=== PATIENT | male | born 1950 | race Caucasian/White ===

== ENCOUNTER 2016-12-10 14:31 | Outpatient (CLI) | payer MEDICARE, OTHER ==
[2016-12-10 20:11] LABS: BILIRUBIN,URINE NEGATIVE (NEGATIVE); PH,URINE 5.5 PH (5.0-7.5)
[2016-12-10 20:19] LABS: WBC,URINE 0-3 /HPF (0-3)
[2016-12-10 20:24] LABS: ALBUMIN/GLOBULIN RATIO 1.4 (1.0-2.2); BILIRUBIN,TOTAL 0.6 mg/dL (0.2-1.0); BUN - BLOOD UREA NITROGEN 20 mg/dL (6-20); CALCIUM 8.8 mg/dL (8.5-10.3); CARBON DIOXIDE - CO2 24 mmol/L (21-32); CHLORIDE 105 mmol/L (101-111); CHOL/HDL RATIO 5.3 (<5.0); CHOLESTEROL 174 mg/dL; CREATININE 0.9 mg/dL (0.6-1.2); GFR - MDRD 84 (>89); GLUCOSE 105 mg/dL (70-100); HDL CHOLESTEROL 33 mg/dL; POTASSIUM 4.1 mmol/L (3.5-5.0); SODIUM 136 mmol/L (135-145); TOTAL PROTEIN 7.1 g/dL (6.7-8.2); TRIGLYCERIDES 405 mg/dL
[2016-12-10 20:47] LABS: LDL CHOLESTEROL,DIRECT 91 mg/dL
== END 2016-12-10 14:32 | disposition home or self-care (01) ==
LOC: LAB.F 14:31
PROVIDERS: ATTEND Family Medicine
DX: Z00.00 Encounter for general adult medical examination without abnormal findings (principal); E78.5 Hyperlipidemia, unspecified; Z12.5 Encounter for screening for malignant neoplasm of prostate; R35.8 Other polyuria; G25.0 Essential tremor; E88.81 Metabolic syndrome and other insulin resistance
CPT/HCPCS: 36415; 80053; 80061; 81001; 83721; G0103; 84153

== ENCOUNTER 2018-01-02 08:43 | Outpatient (CLI) | payer MEDICARE, OTHER ==
[2018-01-02 19:24] LABS: ALBUMIN 3.8 g/dL (3.2-5.5); ALBUMIN/GLOBULIN RATIO 1.2 (1.0-2.2); ALKALINE PHOSPHATASE 59 IU/L (42-121); ALT ALANINE AMINOTRANSFERASE 23 IU/L (10-60); AST ASPARTATE AMINOTRANSFERASE 19 IU/L (10-42); BILIRUBIN,TOTAL 0.5 mg/dL (0.2-1.0); BUN - BLOOD UREA NITROGEN 19 mg/dL (6-20); CALCIUM 8.8 mg/dL (8.5-10.3); CARBON DIOXIDE - CO2 26 mmol/L (21-32); CHLORIDE 107 mmol/L (101-111); CHOL/HDL RATIO 4.8 (<5.0); CHOLESTEROL 172 mg/dL; GFR - MDRD 75 (>89); GLUCOSE 109 mg/dL (70-100); HDL CHOLESTEROL 36 mg/dL; LDL CHOLESTEROL,CALCULATED 104 mg/dL; LDL/HDL RATIO 2.9 (<3.6); SODIUM 139 mmol/L (135-145); VLDL CHOLESTEROL 32 mg/dL
== END 2018-01-02 08:44 | disposition home or self-care (01) ==
LOC: LAB.F 08:43
PROVIDERS: ATTEND Family Medicine
DX: Z00.00 Encounter for general adult medical examination without abnormal findings (principal); E78.5 Hyperlipidemia, unspecified; E88.81 Metabolic syndrome and other insulin resistance; Z12.5 Encounter for screening for malignant neoplasm of prostate
CPT/HCPCS: 36415; 80053; 80061; G0103; 83721; 84153

== ENCOUNTER 2018-06-15 12:08 | Outpatient (CLI) | payer MEDICARE, OTHER ==
[~2018-06-15 12:08] MED LIST: IOTHALAMATE MEGLUMINE 50 ML VIAL ONE
[2018-06-15] MEDS ORDERED: BUFFERED LIDOCAINE 10 ML SYRINGE ONE ×2 (12:23→12:49)
--- NOTE | 2018-06-15 15:45 | XRAY Report ---
Reason: UNSPEC INJ OF RT LOW LEG Procedure Date: 06/15/2018 Accession Number: [id number] / [id number] Procedure: FL - Arthrogram Needle Placement CPT Code: FULL RESULT: EXAM: Arthrogram Needle Placement DATE: 06/15/2018 1:42 PM CLINICAL HISTORY: Fell on right knee with persistent pain. Patient has intracranial stimulator and cannot have an MRI. COMPARISON: None. TECHNIQUE: The risks, benefits, and alternatives of the procedure were discussed with the patient. All questions were answered. Written and verbal consent were obtained. The right knee joint was marked under fluoroscopy and prepped and draped in a sterile manner. Local anesthesia was performed with 1% lidocaine. A 22-gauge needle was then inserted into the knee joint. 21 cc of a solution containing 14 cc of Conray 60% and 7 cc of lidocaine 1% were then injected into the right knee joint. The needle was removed without immediate complication. Other: None. Fluoroscopic exposure time: 1 minute 2 seconds Number of fluoroscopic images: 2. FINDINGS: Bones and joints: No fracture or subluxation. Injection: Fluoroscopic images demonstrate needle placement and contrast in the knee joint. IMPRESSION: Successful fluoroscopically guided arthrographic injection of the right knee prior to CT. [facility]
[2018-06-15] MEDS ORDERED: IOTHALAMATE MEGLUMINE 50 ML VIAL IVP ONE (16:11)
[2018-06-15] MEDS: BUFFERED LIDOCAINE 10 ML SYRINGE IU ONE ×5 (16:13→18:42)
--- NOTE | 2018-06-15 22:24 | CT Report ---
Reason: ARTHROGRAM - UNSPEC INJ OF RT LOW LEG, INITIAL ENC Procedure Date: 06/15/2018 Accession Number: [id number] / [id number] Procedure: CT - Lower Extremity Right W/ CPT Code: FULL RESULT: EXAM: RIGHT KNEE CT ARTHROGRAM WITH CONTRAST. EXAM DATE: 06/15/2018 01:46 PM. CLINICAL HISTORY: Fall onto right patella in April 2018, possible injury to joint. COMPARISON: None available. TECHNIQUE: Thin-section axial images were acquired of the knee after an arthrographic injection dictated under a separate exam. Post-processing: Coronal and sagittal reformats. Other: None. In accordance with CT protocol optimization, one or more of the following dose reduction techniques were utilized for this exam: automated exposure control, adjustment of mA and/or KV based on patient size, or use of iterative reconstructive technique. FINDINGS: Bones: No fracture or bone lesion. Articular Cartilage: Shallow partial-thickness cartilage loss posterior aspect medial compartment and posterior aspect lateral tibial plateau. Menisci: Complex tear body and posterior horn with peripheral vertical component through the periphery and radial components through the free edge and flipped fragment extending over the superior articular surface posterior horn and root towards the intercondylar notch. Subtle horizontal tear contacts the inferior articular surface anterior horn lateral meniscus. Ligaments: No complete or external partial tears of the anterior cruciate, posterior cruciate, medial collateral, and lateral collateral ligamentous structures. Tendons: Suggestion of thickening and calcifications in the distal quadriceps tendon. Patellar tendon unremarkable. Musculature: No fatty atrophy. Other: No Bakers cyst. No loose bodies. No complete tears of the medial and lateral retinacula. No soft tissue swelling. IMPRESSION: 1. Complex tear body and posterior horn medial meniscus with flipped fragment extending toward the intercondylar notch. 2. Subtle horizontal tear anterior horn lateral meniscus. 3. Shallow partial thickness cartilage loss medial and lateral compartments. 4. Mild tendinopathy and ill-defined calcifications in the quadriceps tendon. [facility] MUSCULOSKELETAL RADIOLOGY SECTION
== END 2018-06-15 12:09 | disposition home or self-care (01) ==
LOC: DI 12:08
PROVIDERS: ATTEND Orthopaedic Surgery
DX: S89.91XA Unspecified injury of right lower leg, initial encounter (principal); S80.01XA Contusion of right knee, initial encounter; S83.241A Other tear of medial meniscus, current injury, right knee, initial encounter; S83.281A Other tear of lateral meniscus, current injury, right knee, initial encounter; M67.863 Other specified disorders of tendon, right knee
CPT/HCPCS: 73701; 77002; Q9961

== ENCOUNTER 2019-04-20 09:59 | Outpatient (CLI) | payer MEDICARE, OTHER ==
[2019-04-20 18:45] LABS: CHOLESTEROL 189 mg/dL; GLUCOSE,FASTING 118 mg/dL (70-100); HDL CHOLESTEROL 38 mg/dL; LDL CHOLESTEROL,CALCULATED 106 mg/dL; LDL/HDL RATIO 2.8 (<3.6); VLDL CHOLESTEROL 45 mg/dL
== END 2019-04-20 10:00 | disposition home or self-care (01) ==
LOC: LAB.S 09:59
PROVIDERS: ATTEND Internal Medicine
DX: Z13.220 Encounter for screening for lipoid disorders (principal); Z13.1 Encounter for screening for diabetes mellitus; Z12.5 Encounter for screening for malignant neoplasm of prostate; Z79.899 Other long term (current) drug therapy; N40.0 Benign prostatic hyperplasia without lower urinary tract symptoms
CPT/HCPCS: 36415; 80061; 82947; G0103; 83721; 84153

== ENCOUNTER 2019-06-05 07:00 | Outpatient (CLI) | payer MEDICARE, OTHER | END 2019-06-05 23:59 | disposition home or self-care (01) | LOC: LAB.R 07:00 | PROVIDERS: ATTEND Internal Medicine | DX: Z01.818 Encounter for other preprocedural examination (principal) | CPT/HCPCS: 87081 ==

== ENCOUNTER 2020-02-11 13:14 | Day surgery (SDC) | payer MEDICARE, OTHER ==
[2020-02-11] MEDS ORDERED: MIDAZOLAM 2 MG/2 ML VIAL IVP ONE (13:15)
[2020-02-11] MEDS ORDERED: fentaNYL 250 MCG/5 ML VIAL IVP ONE (13:15)
[2020-02-11] MEDS ORDERED: LACTATED RINGERS 1,000 ML IV ONE ×2 (13:54→16:31)
[2020-02-11 17:05] VITALS: BP 108/64
== END 2020-02-11 13:15 | disposition home or self-care (01) ==
LOC: SDS 13:14
PROVIDERS: ATTEND Internal Medicine Gastroenterology
PROC: 0DBN8ZZ Excision of Sigmoid Colon, Via Natural or Artificial Opening Endoscopic (ICD-10-PCS; 2020-02-11)
PROC: 0DBM8ZZ Excision of Descending Colon, Via Natural or Artificial Opening Endoscopic (ICD-10-PCS; 2020-02-11)
PROC: 0DBK8ZZ Excision of Ascending Colon, Via Natural or Artificial Opening Endoscopic (ICD-10-PCS; principal; 2020-02-11 14:15)
DX: Z12.11 Encounter for screening for malignant neoplasm of colon (principal); D12.2 Benign neoplasm of ascending colon; D12.4 Benign neoplasm of descending colon; K63.5 Polyp of colon; K57.30 Diverticulosis of large intestine without perforation or abscess without bleeding; G47.33 Obstructive sleep apnea (adult) (pediatric)
CPT/HCPCS: 45380; 45385; J3010; J7120

== ENCOUNTER 2020-08-14 08:41 | Outpatient (CLI) | payer MEDICARE, OTHER ==
[2020-08-14 15:54] LABS: BASOPHILS # (AUTO) 0.1 10^3/uL (0.0-0.1); BASOPHILS % (AUTO) 0.8 %; EOSINOPHILS # (AUTO) 0.4 10^3/uL (0.0-0.7); EOSINOPHILS % (AUTO) 6.1 %; HCT - HEMATOCRIT 47.6 % (42.0-52.0); HGB - HEMOGLOBIN 15.7 g/dL (14.0-18.0); LYMPHOCYTES # (AUTO) 1.7 10^3/uL (1.5-3.5); LYMPHOCYTES % (AUTO) 29.4 %; MEAN CORPUSCULAR HEMOGLOBIN 33.9 pg (27.0-31.0); MEAN CORPUSCULAR VOLUME 102.8 fL (80.0-94.0); MEAN PLATELET VOLUME 11.5 fL (7.4-11.4); MONOCYTES # (AUTO) 0.4 10^3/uL (0.0-1.0); MONOCYTES % (AUTO) 7.4 %; NEUTROPHILS # (AUTO) 3.3 10^3/uL (1.5-6.6); PLT - PLATELET COUNT 183 10^3/uL (130-450); RED BLOOD COUNT 4.63 10^6/uL (4.70-6.10); RED CELL DISTRIBUTION WIDTH 13.5 % (12.0-15.0); WHITE BLOOD COUNT 5.9 x10^3/uL (4.8-10.8)
[2020-08-14 16:27] LABS: ALBUMIN/GLOBULIN RATIO 1.3 (1.0-2.2); CALCIUM 8.9 mg/dL (8.5-10.3); CREATININE 1.1 mg/dL (0.6-1.2); POTASSIUM 3.8 mmol/L (3.5-5.0)
[2020-08-14 19:48] LABS: ESTIMATED AVERAGE GLUCOSE 114 mg/dL (70-100); HEMOGLOBIN A1c% 5.6 % (4.27-6.07)
== END 2020-08-14 08:42 | disposition home or self-care (01) ==
LOC: LAB.S 08:41
PROVIDERS: ATTEND Internal Medicine
DX: R73.01 Impaired fasting glucose (principal); Z79.899 Other long term (current) drug therapy; Z12.5 Encounter for screening for malignant neoplasm of prostate
CPT/HCPCS: 36415; 80053; 83036; 85025; G0103; 84153

== ENCOUNTER 2020-09-01 13:42 | Outpatient (CLI) | payer MEDICARE, OTHER ==
--- NOTE | 2020-09-01 14:36 | SLEEP CARE CONSULTATION ---
Information from patient questionnaire entered by Paulina Pratt. I have reviewed and concur with the information entered by Paulina Pratt. This document represents the service I personally performed and the decisions made by me, Dev Mclaughlin MD, [facility]. History of Present Illness Service Date and Time: 09/01/2020 1342 Reason for Visit: New patient Chief Complaint: reports: Unrefreshed sleep, Snoring, Excessive daytime sleepiness, Observed pauses in breathing, Fatigue, Frequent awakenings at night Date of Onset: 1991 Usual bedtime: ? Time it takes to fall asleep: Minutes/hours Snores at night: Yes Observed to quit breathing while asleep: Yes Sleeps alone due to snoring: No Number of times waking at night: 2-6 Reasons for waking at night: reports: Bathroom, Other (Unknown reason) Toss, Turn, or Twitch while sleeping: No Recalls having dreams: Yes Usually gets out of bed at: Various Feels refreshed in the morning: Yes Morning headache: No Sleepy or fatigued during the day: Yes Ever fallen asleep while driving: No Takes day naps: Yes Dreams during day naps: Yes Prior sleep studies: Yes Year and Where: 2011 [facility] Additional HPI information: I had the pleasure of seeing Mr. Templeton again today regarding obstructive sleep apnea. As you know, he is a 61 year old gentleman who was diagnosed to have severe obstructive sleep apnea with an RDI of 40.5 in 1999. He had the study done at [facility] in [place]. He now wears a Respironics DreamWear nasal cushion mask. His supplies come from [employer]. He reports significant improvement on the CPAP. He has been using it every night and all night since the beginning. His Respironics REM Star CPAP is now 10 years old. It has the credit card type memory card which can no longer be downloaded. According to my last note from 9 years ago, his CPAP was set at 10 cmH2O. According his , he does not snore at all through the CPAP. He gained lost 20 lbs over the past 9 years. His score on [place] Sleepiness Scale is 6 out of 24. - Parasomnia Symptoms Ever been unable to move upon waking from sleep: No Ever felt weak in the knees when startled or emotional: No Bothered by creepy, crawly, restless sensations in legs: No Problems with memory or concentration: No Subjective Initial [place] Sleepiness Scale score: 6 (in 2020) Past Medical History Past Medical History: reports: Depression Social History The patient's occupation is a retiree. Patient is and lives in [place]. Have you smoked in the past 12 months: Yes Cigarettes per day (20/pack): 40 Years of smokin Quit date: 1973 Smoking Pack Years: 12.0 Alcohol use: No Caffeine use: Yes Caffeine amount and frequency: 1 a day Family History Family history of sleep disordered breathing: No Allergies and Home Medications Drug allergies reviewed: Yes Home medication list reviewed: Yes Review of Systems Review of systems same as previous: Yes Psychiatric: reports: depression Physical Exam Height: 5 ft 9 in Weight: 220 lb Body Mass Index: 32.5 BMI Classification: Obese Impression and Plan IMPRESSION: 1. Obstructive Sleep Apnea-Hypopnea Syndrome, severe, as previously diagnosed. The patient has been doing very well on the positive airway pressure therapy. Because the CPAP is now older than the useful life of 5 years, I will order the patient a new one and make it an autoCPAP set between 6 and 11 cmH2O. Plan: 1. Prescription made for an autoCPAP, heated humidifier, and related supplies. 2. Try to lose weight. 3. Return for follow up after one month of using the new machine. Follow up recommended for: Weight management Time Spent with Patient (minutes): 15
== END 2020-09-01 13:43 | disposition home or self-care (01) ==
LOC: SC 13:42
PROVIDERS: ATTEND Internal Medicine Pulmonary Disease
DX: G47.33 Obstructive sleep apnea (adult) (pediatric) (principal); Z87.891 Personal history of nicotine dependence; E66.9 Obesity, unspecified; Z68.32 Body mass index [BMI] 32.0-32.9, adult
CPT/HCPCS: 99202; G0463; 99212

== ENCOUNTER 2021-02-17 08:54 | Outpatient (CLI) | payer MEDICARE, OTHER ==
[2021-02-17 14:59] LABS: ALBUMIN 3.8 g/dL (3.2-5.5); ALBUMIN/GLOBULIN RATIO 1.2 (1.0-2.2); BILIRUBIN,TOTAL 0.8 mg/dL (0.2-1.0); POTASSIUM 4.3 mmol/L (3.5-5.0); TOTAL PROTEIN 7.1 g/dL (6.7-8.2)
[2021-02-17 15:21] LABS: BASOPHILS % (AUTO) 0.6 %; EOSINOPHILS # (AUTO) 0.4 10^3/uL (0.0-0.7); EOSINOPHILS % (AUTO) 5.8 %; HCT - HEMATOCRIT 48.4 % (42.0-52.0); HGB - HEMOGLOBIN 15.9 g/dL (14.0-18.0); LYMPHOCYTES % (AUTO) 31.8 %; MEAN CORPUSCULAR HEMOGLOBIN 33.8 pg (27.0-31.0); MEAN CORPUSCULAR HGB CONC 32.9 g/dL (32.0-36.0); MEAN CORPUSCULAR VOLUME 102.8 fL (80.0-94.0); MEAN PLATELET VOLUME 10.3 fL (7.4-11.4); MONOCYTES # (AUTO) 0.5 10^3/uL (0.0-1.0); NEUTROPHILS # (AUTO) 3.3 10^3/uL (1.5-6.6); NEUTROPHILS % (AUTO) 53.3 %; PLT - PLATELET COUNT 192 10^3/uL (130-450); RED BLOOD COUNT 4.71 10^6/uL (4.70-6.10); RED CELL DISTRIBUTION WIDTH 13.5 % (12.0-15.0); WHITE BLOOD COUNT 6.3 x10^3/uL (4.8-10.8)
== END 2021-02-17 08:55 | disposition home or self-care (01) ==
LOC: LAB.S 08:54
PROVIDERS: ATTEND Internal Medicine
DX: Z79.899 Other long term (current) drug therapy (principal)
CPT/HCPCS: 36415; 80053; 85025

== ENCOUNTER 2021-08-23 12:16 | Outpatient (CLI) | payer MEDICARE, OTHER ==
[2021-08-23 18:19] LABS: BASOPHILS # (AUTO) 0.1 10^3/uL (0.0-0.1); BASOPHILS % (AUTO) 1.2 %; EOSINOPHILS # (AUTO) 0.3 10^3/uL (0.0-0.7); EOSINOPHILS % (AUTO) 4.5 %; HCT - HEMATOCRIT 47.3 % (42.0-52.0); HGB - HEMOGLOBIN 15.8 g/dL (14.0-18.0); LYMPHOCYTES # (AUTO) 1.9 10^3/uL (1.5-3.5); LYMPHOCYTES % (AUTO) 32.3 %; MEAN CORPUSCULAR HEMOGLOBIN 34.4 pg (27.0-31.0); MEAN CORPUSCULAR HGB CONC 33.4 g/dL (32.0-36.0); MEAN CORPUSCULAR VOLUME 103.1 fL (80.0-94.0); MEAN PLATELET VOLUME 10.7 fL (7.4-11.4); MONOCYTES # (AUTO) 0.5 10^3/uL (0.0-1.0); MONOCYTES % (AUTO) 7.9 %; NEUTROPHILS # (AUTO) 3.1 10^3/uL (1.5-6.6); NEUTROPHILS % (AUTO) 53.9 %; PLT - PLATELET COUNT 205 10^3/uL (130-450); RED BLOOD COUNT 4.59 10^6/uL (4.70-6.10); RED CELL DISTRIBUTION WIDTH 13.5 % (12.0-15.0); WHITE BLOOD COUNT 5.8 x10^3/uL (4.8-10.8)
[2021-08-23 18:35] LABS: ALBUMIN 3.7 g/dL (3.2-5.5); ALBUMIN/GLOBULIN RATIO 1.2 (1.0-2.2); ALKALINE PHOSPHATASE 61 IU/L (42-121); ALT ALANINE AMINOTRANSFERASE 20 IU/L (10-60); AST ASPARTATE AMINOTRANSFERASE 17 IU/L (10-42); BILIRUBIN,TOTAL 0.7 mg/dL (0.2-1.0); BUN - BLOOD UREA NITROGEN 19 mg/dL (6-20); CALCIUM 8.5 mg/dL (8.5-10.3); CARBON DIOXIDE - CO2 28 mmol/L (21-32); CHLORIDE 105 mmol/L (101-111); CHOL/HDL RATIO 4.9 (<5.0); CHOLESTEROL 194 mg/dL; GFR - MDRD 74 (>89); GLUCOSE 101 mg/dL (70-100); HDL CHOLESTEROL 40 mg/dL; LDL CHOLESTEROL,CALCULATED 111 mg/dL; LDL/HDL RATIO 2.8 (<3.6); POTASSIUM 4.2 mmol/L (3.5-5.0); SODIUM 139 mmol/L (135-145); TOTAL PROTEIN 6.8 g/dL (6.7-8.2); TRIGLYCERIDES 215 mg/dL; VLDL CHOLESTEROL 43 mg/dL
== END 2021-08-23 12:17 | disposition home or self-care (01) ==
LOC: LAB.S 12:16
PROVIDERS: ATTEND Internal Medicine
DX: Z79.899 Other long term (current) drug therapy (principal); Z13.220 Encounter for screening for lipoid disorders; Z12.5 Encounter for screening for malignant neoplasm of prostate
CPT/HCPCS: 36415; 80053; 80061; 85025; G0103; 83721; 84153

== ENCOUNTER 2022-06-20 13:18 | Emergency (ER) | payer MEDICARE, OTHER ==
--- NOTE | 2022-06-20 13:57 | XRAY Report ---
PROCEDURE: Chest 2 View X-Ray INDICATIONS: pain R upper back TECHNIQUE: 2 views of the chest were acquired. COMPARISON: None FINDINGS: Surgical changes and devices: Neurostimulator power pack projects over the left chest. The lead is di rected cranially. Lungs and pleura: Moderately decreased lung volumes. Slight blunting of the lateral costophrenic sulc i. There are probably bibasilar atelectatic changes. The upper lung zones are normally aerated. No pn eumothorax. Mediastinum: Mediastinal contours are normal. Heart size is enlarged. No central venous congestion. . Bones and chest wall: No suspicious bony abnormalities. Degenerative changes in both acromial clavic ular joints. Upper abdominal soft tissues suggest a few small calculi in the right upper quadrant, po tentially cholelithiasis. IMPRESSION: 1. Low lung volumes and probable bibasilar atelectatic change. 2. Cardiomegaly without central vascular congestion. 3. Suspected cholelithiasis. Reviewed by: Julieta Mares MD on 06/20/2022 12:55 PM AKST Approved by: Julieta Mares MD on 06/20/2022 12:55 PM AKST Station ID: [id number]
[2022-06-20 14:32] LABS: BASOPHILS # (AUTO) 0.1 10^3/uL (0.0-0.1); BASOPHILS % (AUTO) 0.9 %; EOSINOPHILS # (AUTO) 0.2 10^3/uL (0.0-0.7); EOSINOPHILS % (AUTO) 2.5 %; HCT - HEMATOCRIT 47.8 % (42.0-52.0); HGB - HEMOGLOBIN 15.9 g/dL (14.0-18.0); LYMPHOCYTES # (AUTO) 1.9 10^3/uL (1.5-3.5); LYMPHOCYTES % (AUTO) 29.5 %; MEAN CORPUSCULAR HGB CONC 33.3 g/dL (32.0-36.0); MEAN CORPUSCULAR VOLUME 99.2 fL (80.0-94.0); MEAN PLATELET VOLUME 10.5 fL (7.4-11.4); MONOCYTES # (AUTO) 0.5 10^3/uL (0.0-1.0); MONOCYTES % (AUTO) 7.6 %; NEUTROPHILS # (AUTO) 3.9 10^3/uL (1.5-6.6); NEUTROPHILS % (AUTO) 59.3 %; PLT - PLATELET COUNT 186 10^3/uL (130-450); RED BLOOD COUNT 4.82 10^6/uL (4.70-6.10); RED CELL DISTRIBUTION WIDTH 12.5 % (12.0-15.0); WHITE BLOOD COUNT 6.5 x10^3/uL (4.8-10.8)
[2022-06-20 14:43] LABS: ALBUMIN/GLOBULIN RATIO 1.2 (1.0-2.2); BILIRUBIN,TOTAL 0.9 mg/dL (0.2-1.0); CALCIUM 8.8 mg/dL (8.5-10.3); CREATININE 1.1 mg/dL (0.6-1.2); POTASSIUM 3.8 mmol/L (3.5-5.0); TOTAL PROTEIN 7.3 g/dL (6.7-8.2)
--- NOTE | 2022-06-20 14:57 | ED Physician Documentation ---
History of Present Illness - Stated complaint Stated Complaint: BACK PX,SOA - Chief complaint Chief Complaint: Back Pain - History obtained from History obtained from: Patient, Family - History of Present Illness Pain level max: 7 Pain level now: 5 - Additonal information Additional information: Patient is a 72-year-old male who presents to the emergency department with right-sided back pain, he states that this is near the level of the scapula. Worse with movement, better with rest. Has been ongoing for the past 3 months. Gradually worsening. He states he feels mildly short of breath as well. No fevers. No chills. Denies any trauma. No cough. No congestion. Patient states that the pain increased abruptly last night and today. Review of Systems Constitutional: denies: Fever, Chills Throat: denies: Sore throat Cardiac: denies: Palpitations Respiratory: denies: Wheezing GI: denies: Diarrhea PD PAST MEDICAL HISTORY - Past Medical History Cardiovascular: High cholesterol Respiratory: None Endocrine/Autoimmune: None GI: None : None HEENT: None Psych: Depression Musculoskeletal: None Derm: Rosacea - Present Medications Home Medications: Ambulatory Orders Medication Instructions Recorded Confirmed PARoxetine [Paxil] 02/08/20 Primidone 1 02/08/20 - Allergies Allergies/Adverse Reactions: Allergies Allergy/AdvReac Type Severity Reaction Status Date / Time No Known Drug Allergies Allergy Verified 06/20/22 13:27 PD ED PE NORMAL - Vitals Vital signs reviewed: Yes - General General: Alert and oriented X 3, No acute distress - HEENT HEENT: PERRL, Moist mucous membranes - Neck Neck: Supple, no meningeal sign - Cardiac Cardiac: RRR, Strong equal pulses - Respiratory Respiratory: No respiratory distress, Clear bilaterally - Abdomen Abdomen: Soft, Non distended, Other (Mild tenderness palpation right upper quadrant. No peritoneal signs) - Back Back: No CVA TTP, No spinal TTP - Derm Derm: Warm and dry, No rash - Extremities Extremities: No edema, No calf tenderness / cord - Neuro Neuro: Alert and oriented X 3 - Psych Psych: Normal mood, Normal affect Results - Vitals Vitals: Vital Signs - 24 hr 06/20/22 06/20/22 06/20/22 13:22 16:52 18:17 Temperature 37.1 C 37.0 C Heart Rate 82 65 72 Respiratory 16 18 19 Rate Blood Pressure 148/63 H 135/70 H 148/87 H O2 Saturation 96 95 99 Oxygen O2 Source Room air - Labs Labs: Laboratory Tests 06/20/22 06/20/22 14:20 14:20 WBC 6.5 RBC 4.82 Hgb 15.9 Hct 47.8 MCV 99.2 H MCH 33.0 H MCHC 33.3 RDW 12.5 Plt Count 186 MPV 10.5 Neut # (Auto) 3.9 Lymph # (Auto) 1.9 [place] # (Auto) 0.5 Eos # (Auto) 0.2 Baso # (Auto) 0.1 Absolute Nucleated RBC 0.00 Nucleated RBC % 0.0 Sodium 137 Potassium 3.8 Chloride 105 Carbon Dioxide 24 Anion Gap 8.0 BUN 16 Creatinine 1.1 Estimated GFR (MDRD) 66 L Glucose 154 H Calcium 8.8 Total Bilirubin 0.9 AST 19 ALT 23 Alkaline Phosphatase 58 Total Protein 7.3 Albumin 4.0 Globulin 3.3 Albumin/Globulin Ratio 1.2 Lipase 35 - Rads (name of study) Chest x-ray Radiology: Final report received, See rad report CT angio chest Radiology: Final report received, See rad report Right upper quadrant ultrasound Radiology: Final report received, See rad report PD Medical Decision Making - ED course Complexity details: reviewed results, re-evaluated patient, considered differential, d/w patient, d/w family, d/w fundraising consultant Reviewed Lab Results: CBC and ER abdominal panel did not show any significant abnormalities. ED course: 72-year-old male with about 3 months of ongoing right sided back pain/scapular pain. Chest x-ray shows possible gallstones, possible referred pain? CT pulmonary angiogram was performed for possible PE. Does have debris and a lower bronchus with some inflammation, will need an outpatient bronchoscope. These findings were discussed with the patient and his . Right upper quadrant ultrasound shows gallstones with borderline gallbladder wall thickening. On repeat evaluation, the patient does have increasing tenderness in the right upper quadrant and now has a positive Chadwick sign. Discussed the case with Dr. Rodríguez, general surgery on-call. She would like us to try IV fluids and Toradol. This was given. Patient remains tender to palpation on the right upper quadrant with a positive Chadwick sign. Discussed the case with Dr. Rodríguez again, she will come and evaluate the patient in person. Departure - Departure Clinical Impression: Biliary colic, Bronchial obstruction Condition: Stable
[2022-06-20] MEDS ORDERED: iohexoL-300 100 ML VIAL ONE (15:19)
[2022-06-20] MEDS ORDERED: iohexoL-300 100 ML VIAL IVP ONE (15:44)
--- NOTE | 2022-06-20 16:26 | CT Report ---
PROCEDURE: ANGIO CHEST W/WO INDICATIONS: R pleuritic back pain CONTRAST: 80ml omni 300 TECHNIQUE: After the administration of intravenous contrast, 2 mm axial images were acquired from the pulmonary apices to the posterior costophrenic angles during the arterial phase. In addition, 1 mm lung kernel and 5 mm soft tissue kernel reconstructions were performed. 3-dimensional coronal oblique maximum int ensity projection (MIP) reformats, 8 mm axial MIP, and 5 mm coronal and sagittal MPR reformats were t hen performed through the thorax. For radiation dose reduction, the following was used: automated exp osure control, adjustment of mA and/or kV according to patient size. COMPARISON: None FINDINGS: Image quality: Excellent. Pulmonary arteries: Pulmonary arteries are normal in size, and demonstrate no intraluminal filling d efects to suggest central pulmonary embolism. Lungs and pleura: There is abrupt termination of the right lower lobe posterior basal segment airway. Distally, airway is filled with material and slightly expansile as it courses adjacent to the pulmon camilo vasculature. There is mild postobstructive linear atelectasis in the costophrenic sulcus. Central and peripheral airways are otherwise within normal limits. There is respiratory motion. No other jacinta eolar consolidations. No pleural effusion or pneumothorax. Mediastinum: Heart size is normal, without pericardial effusion. There is borderline 9 mm short axi s right hilar node. No other mediastinal or hilar adenopathy. Thoracic aorta is normal in caliber an d enhancement. Esophagus is normal in caliber, without hiatal hernia. Bones and chest wall: No suspicious bony lesions. Ribs and thoracic spine appear intact throughout. No axillary or supraclavicular adenopathy. Left chest subcutaneous power pack. The thyroid gland is diminutive. Abdomen: Cholelithiasis. No pericholecystic inflammation. Visible portions of the upper abdomen are otherwise normal. IMPRESSION: 1. No pulmonary embolus. 2. Right lower lobe posterior basal segment airway occlusion with minor postobstructive linear atelec tatic change. 3. Borderline right hilar lymph node. 4. Cholelithiasis. 5. Bronchoscopy for diagnosis and treatment could be considered. Reviewed by: Julieta Mares MD on 06/20/2022 3:25 PM AK Approved by: Julieta Mares MD on 06/20/2022 3:25 PM AK Station ID: [id number]
[2022-06-20] MEDS ORDERED: oxyCODONE 5 MG TABLET PO STA (17:04)
--- NOTE | 2022-06-20 17:10 | Ultrasound Report ---
PROCEDURE: Abdomen Limited INDICATIONS: RUQ pain TECHNIQUE: Real-time focused scanning was performed of the abdomen, with image documentation. COMPARISON: CT angiogram of the chest from the same day. Abdominal ultrasound dated 01/24/2015. FINDINGS: Liver is normal in size. Diffusely increased liver parenchymal echotexture is seen. No discrete hepat ic lesion. Normal hepatopedal flow is seen in main portal vein. Multiple stones are seen in any portion of gallbladder near the neck of gallbladder with borderline g allbladder wall thickening measures up to 3.4 mm. No pericholecystic fluid or sonographic Chadwick's si gn. There is no intrahepatic biliary ductal dilatation. Common bile that measures up to 3.7 mm in diamete r and is within normal limits. Pancreas is not well seen due to overlying bowel gas. Right kidney measures 9.8 cm in length and 1.6 cm in renal cortical thickness. Echogenic foci are not ed in right renal parenchyma which could represent tiny stones. No hydronephrosis or gross solid-appe aring renal lesion is seen. IMPRESSION: 1. Marked hepatic steatosis, no discrete hepatic lesion. 2. Cholelithiasis with borderline gallbladder wall thickening. No definite sonographic Chadwick's sign. Very early cholecystitis cannot be excluded. No biliary ductal dilatation. 3. Questionable tiny right renal calculi. No hydronephrosis or gross solid-appearing renal lesion. Reviewed by: Michael Elkins MD on 06/20/2022 5:08 PM PST Approved by: Michael Elkins MD on 06/20/2022 5:08 PM PST Station ID: [id number]
[2022-06-20] MEDS ORDERED: SODIUM CHLORIDE 0.9% 1,000 ML IV STA (17:42)
[2022-06-20] MEDS ORDERED: KETOROLAC 30 MG/ML VIAL IVP STA (17:42)
--- NOTE | 2022-06-20 19:54 | CONSULTATION NOTE ---
Referring Provider Name of Referring Provider:: ER (Arie) Consult Date: 06/20/22 Chief Complaint - Chief Complaint Chief Complaint: back pain History of Present Illness - History Obtained From Records Reviewed: yes History obtained from: patient and , chart, ED provider - History of Present Illness HPI Comment/Other: Patient reports chronic right scapular back pain which has been acutely worse for the last couple of days. The patient reports tearing down a fence and moving heavy tree limbs three days ago. The pain is worst when the patient lies down to rest at night. It is not changed with diet or time of day. He has not noted much pain when he is up moving around throughout the day. He denies any associated fevers, chills, nausea, vomiting, constipation or diarrhea. He states he had some intermittent RUQ abdominal pain many years ago and this feels distinctly different from that pain and is located primarily in his back. He has undergone workup in the ED including a RUQ sono which shows gallstones. On repeat exam, it was felt that his abdominal pain might be worsening, so I was asked to evaluate the patient. At the time of my exam, the patient denies any pain. He denies n/v, and is hungry. History - Past Medical History Cardiovascular: reports: High cholesterol Respiratory: reports: None Neuro: reports: Tremors (essential tremor, has DBS) Endocrine/Autoimmune: reports: None GI: reports: None, Other (obesity) : reports: None HEENT: reports: None Psych: reports: Depression Musculoskeletal: reports: Chronic back pain Derm: reports: Rosacea MRSA Hx?: No - Past Surgical History General: reports: Colonoscopy (2019, wnl), Other (umbilical hernia repair) Ortho: reports: Rotator cuff repair (L), Arthroscopic surgery (knee), Other (B Dupuytren's contracture releases) Neuro: reports: Other (deep brain stimulator) Meds/Allgy - Home Medications Home Medications: Ambulatory Orders Medication Instructions Recorded Confirmed PARoxetine [Paxil] 02/08/20 Primidone 1 02/08/20 - Allergies Allergies/Adverse Reactions: Allergies Allergy/AdvReac Type Severity Reaction Status Date / Time No Known Drug Allergies Allergy Verified 06/20/22 13:27 Review of Systems - Constitutional Constitutional: reports: Other (Complete 10 point ROS is negative aside from HPI and PMH.) Exam - Vital Signs Reviewed Vital Signs: Yes Vital Signs: Vital Signs x48h Temp Pulse Resp BP Pulse Ox 06/20/22 19:00 58 L 20 111/67 98 06/20/22 18:17 72 19 148/87 H 99 06/20/22 16:52 37.0 C 65 18 135/70 H 95 06/20/22 13:22 37.1 C 82 16 148/63 H 96 - Physical Exam General Appearance: positive: No acute distress, Alert Eyes Bilateral: positive: Normal inspection, PERRL, EOMI ENT: positive: No signs of dehydration Neck: positive: Trachea midline Respiratory: positive: Chest non-tender, No respiratory distress Cardiovascular: positive: Regular rate & rhythm, No murmur Peripheral Pulses: positive: 2+ Abdomen: positive: Tenderness (mild RUQ with deep palpation), Other (obese). negative: Guarding, Rebound Skin: positive: No rash, Warm, Dry Extremities: positive: Non-tender, Full ROM Neurologic/Psychiatric: positive: Oriented x3, CN's nml (2-12) Comments/Other: Sono RUQ- borderline wall thickening based on measurements, +stone, no PCF. On my review, I do not appreciate wall thickening or PCF. CTA- RLL subsegmental bronchial plug I personally reviewed the images and reports from both of the above studies. Conclusion and Plan - Lab Results Laboratory Results 06/20/22 14:20: Sodium 137, Potassium 3.8, Chloride 105, Carbon Dioxide 24, Anion Gap 8.0, BUN 16, Creatinine 1.1, Estimated GFR (MDRD) 66 L, Glucose 154 H, Calcium 8.8, Total Bilirubin 0.9, AST 19, ALT 23, Alkaline Phosphatase 58, Total Protein 7.3, Albumin 4.0, Globulin 3.3, Albumin/Globulin Ratio 1.2, Lipase 35 06/20/22 14:20: WBC 6.5, RBC 4.82, Hgb 15.9, Hct 47.8, MCV 99.2 H, MCH 33.0 H, MCHC 33.3, RDW 12.5, Plt Count 186, MPV 10.5, Neut # (Auto) 3.9, Lymph # (Auto) 1.9, [place] # (Auto) 0.5, Eos # (Auto) 0.2, Baso # (Auto) 0.1, Absolute Nucleated RBC 0.00, Nucleated RBC % 0.0 - Diagnostic Imaging Results Diagnostic Imaging Results: positive: Final report reviewed - Consultation Note Consultation Note: 72 y/o M with obesity, depression, essential tremor, presents with acute on ch ronic right back pain. Back pain - underlying etiology unclear - possible musculoskeletal cause given recent stenuous activity and worsened pain/soreness when resting and trying to sleep. Gallstone - no leukocytosis, sonographic coates sign, or wall thickening - patient denies history of pain after eating, even with fatty meals Patient offered options including staying for observation and repeat lab/exam in AM vs discharge home with close follow up. He would like to go home. He does not appear acutely ill and is reliable. I discussed return precautions with him. He may follow up with the general surgery clinic to discuss possible elective lap nelsy. Thank you for consulting me in the care of this patient!
[2022-06-20 20:09] VITALS: BP 144/78
== END 2022-06-20 20:07 | disposition home or self-care (01) ==
LOC: ED 13:18
DX: K80.20 Calculus of gallbladder without cholecystitis without obstruction (principal); R10.11 Right upper quadrant pain; J98.09 Other diseases of bronchus, not elsewhere classified; E66.9 Obesity, unspecified; Z68.34 Body mass index [BMI] 34.0-34.9, adult; M54.9 Dorsalgia, unspecified; F32.A Depression, unspecified; G25.0 Essential tremor
CPT/HCPCS: 36415; 71046; 71275; 76705; 80053; 83690; 85025; 96374; 99284; A9270; Q9967

== ENCOUNTER 2022-09-15 12:49 | Outpatient (CLI) | payer MEDICARE, OTHER | END 2022-09-15 12:50 | disposition home or self-care (01) | LOC: MAC.MOP 12:49 | PROVIDERS: ATTEND Nurse Practitioner | DX: R00.2 Palpitations (principal) | CPT/HCPCS: 93246 ==

== ENCOUNTER 2022-10-21 08:58 | Outpatient (CLI) | payer MEDICARE, OTHER ==
[2022-10-21 09:17] LABS: BASOPHILS # (AUTO) 0.1 10^3/uL (0.0-0.1); BASOPHILS % (AUTO) 1.4 %; EOSINOPHILS # (AUTO) 0.3 10^3/uL (0.0-0.7); EOSINOPHILS % (AUTO) 4.8 %; HCT - HEMATOCRIT 46.7 % (42.0-52.0); HGB - HEMOGLOBIN 15.6 g/dL (14.0-18.0); LYMPHOCYTES # (AUTO) 1.9 10^3/uL (1.5-3.5); LYMPHOCYTES % (AUTO) 33.3 %; MEAN CORPUSCULAR HEMOGLOBIN 33.6 pg (27.0-31.0); MEAN CORPUSCULAR HGB CONC 33.4 g/dL (32.0-36.0); MEAN CORPUSCULAR VOLUME 100.6 fL (80.0-94.0); MEAN PLATELET VOLUME 10.1 fL (7.4-11.4); MONOCYTES # (AUTO) 0.4 10^3/uL (0.0-1.0); MONOCYTES % (AUTO) 7.6 %; NEUTROPHILS % (AUTO) 52.5 %; PLT - PLATELET COUNT 191 10^3/uL (130-450); RED BLOOD COUNT 4.64 10^6/uL (4.70-6.10); RED CELL DISTRIBUTION WIDTH 13.8 % (12.0-15.0); WHITE BLOOD COUNT 5.7 x10^3/uL (4.8-10.8)
[2022-10-21 09:37] LABS: ALBUMIN 3.6 g/dL (3.2-5.5); ALBUMIN/GLOBULIN RATIO 1.1 (1.0-2.2); ALKALINE PHOSPHATASE 58 IU/L (42-121); ALT ALANINE AMINOTRANSFERASE 21 IU/L (10-60); AST ASPARTATE AMINOTRANSFERASE 17 IU/L (10-42); BILIRUBIN,TOTAL 0.8 mg/dL (0.2-1.0); BUN - BLOOD UREA NITROGEN 17 mg/dL (6-20); CALCIUM 8.7 mg/dL (8.5-10.3); CARBON DIOXIDE - CO2 28 mmol/L (21-32); CHLORIDE 109 mmol/L (101-111); CHOL/HDL RATIO 5.1 (<5.0); CHOLESTEROL 197 mg/dL; GFR - MDRD 73 (>89); GLUCOSE 119 mg/dL (70-100); HDL CHOLESTEROL 39 mg/dL; LDL CHOLESTEROL,CALCULATED 114 mg/dL; LDL/HDL RATIO 2.9 (<3.6); POTASSIUM 4.4 mmol/L (3.5-5.0); SODIUM 142 mmol/L (135-145); TOTAL PROTEIN 6.9 g/dL (6.7-8.2); TRIGLYCERIDES 222 mg/dL; VLDL CHOLESTEROL 44 mg/dL
[2022-10-21 09:47] LABS: THYROID STIMULATING HORMONE 2.94 uIU/mL (0.34-5.60)
--- NOTE | 2022-10-21 13:46 | XRAY Report ---
PROCEDURE: Hand 3 View LT INDICATIONS: FINGER PAIN TECHNIQUE: 3 views of the hand acquired. COMPARISON: None. FINDINGS: Bones: No acute fractures or dislocations. No suspicious bony lesions. Small lucencies are seen a t the second and third metacarpal heads. Mild joint space narrowing is seen throughout the interphala ngeal joints of the fingers and at the first carpometacarpal joint. Soft tissues: No suspicious soft tissue calcifications or masses. IMPRESSION: 1.No acute osseous abnormality. If symptoms persist or there is continued clinical concern, further e valuation with MRI or CT may be helpful. 2.Small juxta-articular lucencies are seen at the second and third metacarpal heads, which are nonspe cific but could represent chronic erosions. Recommend correlation with clinical findings and possible serologies to exclude an inflammatory arthritis. Reviewed by: Diogenes Iglesias MD on 10/21/2022 1:45 PM PDT Approved by: Diogenes Iglesias MD on 10/21/2022 1:45 PM PDT Station ID: [id number]
== END 2022-10-21 08:59 | disposition home or self-care (01) ==
LOC: DI 08:58
PROVIDERS: ATTEND Nurse Practitioner
DX: M79.645 Pain in left finger(s) (principal); R00.2 Palpitations; Z13.220 Encounter for screening for lipoid disorders
CPT/HCPCS: 36415; 80053; 80061; 83721; 84443; 85025

== ENCOUNTER 2023-01-25 10:44 | Outpatient (CLI) | payer MEDICARE, OTHER ==
--- NOTE | 2023-01-26 12:04 | CT Report ---
PROCEDURE: CHEST WO INDICATIONS: ABN CHEST CT TECHNIQUE: Noncontrast 1mm axial images were acquired from the pulmonary apices to the posterior costophrenic an gles. Axial 5 mm soft tissue kernel reconstructions were performed as well as 8 mm axial MIP and cor onal and sagittal 5 mm reformations. For radiation dose reduction, the following was used: automate d exposure control, adjustment of mA and/or kV according to patient size. COMPARISON: CT chest, 06/20/2022 FINDINGS: Image quality: Excellent. Lungs and pleura: Portion of right lower lobe posterior basal segmental bronchus seen on the last exa m appears unchanged (series 3 image 197). There is postoperative atelectasis in the right lower lobe. There is a 7 mm groundglass nodule in the superior segment of the right lower lobe (series 3 image 10 3), new. Subpleural scars and atelectasis in right middle lobe and lingula. No consolidation. No pleural effus ions. No pneumothorax. Mediastinum: Heart size is normal. No pericardial effusion. No large vessel abnormality. No mediastin al adenopathy by size criteria. Small hiatal hernia. Chest wall and lower neck: Thyroid is unremarkable. No axillary or supraclavicular adenopathy by size . Bones: There are calcified gallstones. Upper Abdomen: Unremarkable. IMPRESSION: 1. 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 There is associa marcin right lower lobe atelectasis. 2. A 7 mm groundglass nodule in the superior segment of the right lower lobe, new since the last exam . Recommend a follow-up CT is recommended in 3 months. Please see enclosed follow-up recommendation. 3. Cholelithiasis. Fleischner Society criteria for SUB-SOLID lung nodule followup. Solitary pure ground-glass nodules 5 mm or lessNo followup needed. >5 mm3 mo follow-up CT to confirm persistence. Then annual CT for 3 years. Part-solid nodules3 mo follow-up CT to confirm persistence. If persistent with solid component <5 mm , annual CT for at least 3 years. If solid component is 5 mm or more, biopsy or surgical resection. Consider PET-CT for lesions > 10 mm. Multiple sub-solid nodules Pure ground glass nodules [address] at 2 and 4 years. Pure ground glass nodules >5 mm without dominant lesion. [address] to confirm persistence, then annual followup CT for at least 3 years. Dominant nodule(s) with part-solid or solid component. [address] to confirm persistence. If persistent, consider biopsy or surgical resection, beto if lesions have >5 mm solid component. Reviewed by: Artis Ziegler MD on 01/26/2023 12:03 PM PDT Approved by: Artis Ziegler MD on 01/26/2023 12:03 PM PDT Station ID: [id number]
== END 2023-01-25 10:45 | disposition home or self-care (01) ==
LOC: DI 10:44
PROVIDERS: ATTEND Internal Medicine
DX: J98.09 Other diseases of bronchus, not elsewhere classified (principal); J98.11 Atelectasis; R91.1 Solitary pulmonary nodule; K80.20 Calculus of gallbladder without cholecystitis without obstruction

== ENCOUNTER 2023-03-23 10:29 | Outpatient (CLI) | payer MEDICARE, OTHER ==
--- NOTE | 2023-03-23 14:29 | CT Report ---
PROCEDURE: CHEST WO INDICATIONS: PULMONARY NODULE TECHNIQUE: Noncontrast 1mm axial images were acquired from the pulmonary apices to the posterior costophrenic an gles. Axial 5 mm soft tissue kernel reconstructions were performed as well as 8 mm axial MIP and cor onal and sagittal 5 mm reformations. For radiation dose reduction, the following was used: automate d exposure control, adjustment of mA and/or kV according to patient size. COMPARISON: CT chest 01/25/2023 FINDINGS: Image quality: Excellent. Lungs and pleura: No consolidation. No pleural effusions. No pneumothora x. Previous groundglass nodule has resolved. appearaStable appearance of occlusion of the right lower lobe posterior basal segment bronchus with mild associated atelectasis. Mediastinum: Heart size is normal. No pericardial effusion. No large vessel abnormality. Mild atheros clerosis No mediastinal adenopathy by size criteria. Chest wall and lower neck: Thyroid is unremarkable. No axillary or supraclavicular adenopathy by size . Bones: No aggressive osseous abnormality. Degenerative changes of the spine. Upper Abdomen: Cholelithiasis. IMPRESSION: 1.Resolution of prior groundglass nodule. No new or suspicious pulmonary nodules are seen. 2.Stable appearance of occlusion of the right lower lobe posterior basal segment bronchus with mild a ssociated atelectasis. 3.Cholelithiasis Reviewed by: Lan Bravo MD on 03/23/2023 2:28 PM PDT Approved by: Lan Bravo MD on 03/23/2023 2:28 PM PDT Station ID: [id number]
== END 2023-03-23 10:30 | disposition home or self-care (01) ==
LOC: DI 10:29
PROVIDERS: ATTEND Internal Medicine
DX: Z09 Encounter for follow-up examination after completed treatment for conditions other than malignant neoplasm (principal); Z87.09 Personal history of other diseases of the respiratory system; J98.11 Atelectasis; J98.09 Other diseases of bronchus, not elsewhere classified; K80.20 Calculus of gallbladder without cholecystitis without obstruction

== ENCOUNTER 2023-03-31 17:56 | Outpatient (CLI) | payer MEDICARE, OTHER ==
[2023-03-31 18:14] LABS: BASOPHILS # (AUTO) 0.1 10^3/uL (0.0-0.1); BASOPHILS % (AUTO) 0.9 %; EOSINOPHILS # (AUTO) 0.2 10^3/uL (0.0-0.7); EOSINOPHILS % (AUTO) 2.3 %; HCT - HEMATOCRIT 48.7 % (42.0-52.0); HGB - HEMOGLOBIN 16.6 g/dL (14.0-18.0); LYMPHOCYTES # (AUTO) 2.3 10^3/uL (1.5-3.5); LYMPHOCYTES % (AUTO) 29.3 %; MEAN CORPUSCULAR HGB CONC 34.1 g/dL (32.0-36.0); MEAN CORPUSCULAR VOLUME 99.8 fL (80.0-94.0); MEAN PLATELET VOLUME 9.9 fL (7.4-11.4); MONOCYTES # (AUTO) 0.6 10^3/uL (0.0-1.0); MONOCYTES % (AUTO) 7.4 %; NEUTROPHILS # (AUTO) 4.8 10^3/uL (1.5-6.6); PLT - PLATELET COUNT 194 10^3/uL (130-450); RED BLOOD COUNT 4.88 10^6/uL (4.70-6.10); RED CELL DISTRIBUTION WIDTH 13.4 % (12.0-15.0); WHITE BLOOD COUNT 7.9 x10^3/uL (4.8-10.8)
[2023-03-31 18:26] LABS: ALBUMIN 4.4 g/dL (3.2-5.5); ALBUMIN/GLOBULIN RATIO 1.4 (1.0-2.2); BILIRUBIN,TOTAL 0.5 mg/dL (0.2-1.0); CALCIUM 9.3 mg/dL (8.5-10.3); POTASSIUM 4.4 mmol/L (3.5-4.5); TOTAL PROTEIN 7.6 g/dL (6.4-8.9)
[2023-03-31 18:27] LABS: PARTIAL THROMBOPLASTIN TIME 28.4 secs (24.9-33.3)
[2023-03-31 18:31] LABS: INR 1.1 (0.8-1.2); PT - PROTHROMBIN TIME 11.9 secs (9.9-12.6)
[2023-03-31 20:20] LABS: ESTIMATED AVERAGE GLUCOSE 120 mg/dL (70-100); HEMOGLOBIN A1c% 5.8 % (4.27-6.07)
== END 2023-03-31 17:57 | disposition home or self-care (01) ==
LOC: LAB 17:56
PROVIDERS: ATTEND Nurse Practitioner
DX: Z01.812 Encounter for preprocedural laboratory examination (principal); R00.2 Palpitations; R73.03 Prediabetes
CPT/HCPCS: 36415; 80053; 83036; 85025; 85610; 85730

== ENCOUNTER 2023-09-21 10:19 | Emergency (ER) | payer MEDICARE, OTHER ==
--- NOTE | 2023-09-21 11:03 | ED Physician Documentation ---
PD HPI HEENT - Stated complaint Stated Complaint: LIGHT HEADED,DIZZY,WEAKNESS - Chief complaint Chief Complaint: Neuro - History obtained from History obtained from: Patient - History of Present Illness Timing - onset: How many days ago (4) Timing - duration: Days (4) Timing - details: Gradual onset (noted dizziness with movement, beto standing up and turning head. Best with lying flat or just inclined. Resolves if holds still awhile. Associated with ringing/changed hearing left ear. Did not have abrupt movement at onset, just sitting up from lying. URI couple weeks ago with some congestion still), Still present Location: Left ear (tinnitus, and positional vertigo) Improves: Other (lack of movement.) Worsens: Position Associated symptoms: Congestion. No: Fever, Headache, Cough Similar symptoms before: Has not had sx before Recently seen: Not recently seen Review of Systems Constitutional: denies: Fever, Chills Eyes: denies: Loss of vision, Decreased vision Ears: reports: Tinnitus/ringing. denies: Ear pain Nose: reports: Congestion Throat: denies: Sore throat Respiratory: denies: Cough Neurologic: denies: Focal weakness, Numbness, Difficulty speaking PD PAST MEDICAL HISTORY - Past Medical History Past Medical History: Yes Cardiovascular: High cholesterol Respiratory: None Neuro: Tremors (with neural stimulator implant. ) Endocrine/Autoimmune: None GI: None, Other : None HEENT: None Psych: Depression Musculoskeletal: Chronic back pain Derm: Rosacea - Past Surgical History Past Surgical History: Yes General: Colonoscopy, Other Ortho: Rotator cuff repair, Arthroscopic surgery, Other Neuro: Other - Present Medications Home Medications: Ambulatory Orders Medication Instructions Recorded Confirmed PARoxetine [Paxil] 10 mg PO DAILY 02/08/20 09/21/23 Primidone 50 mg PO BID 02/08/20 09/21/23 Atorvastatin [Lipitor] 1 tab PO DAILY 09/21/23 09/21/23 Meclizine [Antivert] 25 mg PO Q6H PRN #30 tablet 09/21/23 Metoprolol Succinate [Toprol Xl] 1 tab PO DAILY 09/21/23 09/21/23 Tamsulosin [Flomax] 1 cap PO DAILY 09/21/23 09/21/23 dexAMETHasone [Decadron] 4 mg PO DAILY #5 tablet 09/21/23 diazePAM [Valium] 5 mg PO TID PRN #12 tablet 09/21/23 - Allergies Allergies/Adverse Reactions: Allergies Allergy/AdvReac Type Severity Reaction Status Date / Time No Known Drug Allergies Allergy Verified 09/21/23 10:28 - Social History Does the pt smoke?: No Smoking Status: Never smoker PD ED PE NORMAL - Vitals Vital signs reviewed: Yes - General General: Alert and oriented X 3, No acute distress, Well developed/nourished - HEENT HEENT: PERRL, EOMI (with notable nystagmus fast component to the left. ) - Neck Neck: Supple, no meningeal sign, No adenopathy, No bruit - Cardiac Cardiac: RRR, No murmur - Respiratory Respiratory: Clear bilaterally - Derm Derm: Normal color, Warm and dry - Neuro Neuro: Alert and oriented X 3, gut dropper 2-12 intact, No motor deficit, No sensory deficit, Normal speech Results - Vitals Vitals: Oxygen O2 Source Room air - Labs Labs: Laboratory Tests 09/21/23 09/21/23 11:04 11:04 WBC 7.7 RBC 4.48 L Hgb 14.9 Hct 45.7 MCV 102.0 H MCH 33.3 H MCHC 32.6 RDW 13.3 Plt Count 169 MPV 10.2 Neut # (Auto) 6.0 Lymph # (Auto) 1.2 L [place] # (Auto) 0.4 Eos # (Auto) 0.1 Baso # (Auto) 0.0 Absolute Nucleated RBC 0.00 Nucleated RBC % 0.0 Sodium 139 Potassium 3.9 Chloride 107 Carbon Dioxide 25 Anion Gap 7.0 BUN 21 H Creatinine 0.9 Estimated GFR (MDRD) 83 L Glucose 158 H Calcium 9.0 Magnesium 1.7 Total Bilirubin 0.7 AST 13 ALT 16 Alkaline Phosphatase 54 Total Protein 6.4 Albumin 3.8 Globulin 2.6 Albumin/Globulin Ratio 1.5 - Rads (name of study) head CT Relevant Findings:: Prelim report reviewed (no acute process. No mass nor mass effect. Left sided stimulator noted.) PD Medical Decision Making - ED course Complexity details: reviewed results (CT head without acute process. MRI is more sensitive for posterior fossa processes. That said, he is not able to get MRI due to stimulator, and CT was as good as can for central cause. Discusssed this with pt ahead and he is in agreeemnt. ), re-evaluated patient (I feel more inflammatory and not otolithic, so did not attempt Epleys. He did get considerable improvement with Diazepam and Meclizine. Able to get up and walk to bathroom without much trouble. ), considered differential (positional vertigo but has symptoms with even slight movement. and not completely resolved lying still, mostly a feeling of tinnitus remains, but the vertigo does resolve. Given the combo of vertigo and tinnitus, along with recent URI and persistent congestion, I believe more of labrynthitis.), d/w patient Reviewed Lab Results: basic labs done and no acute process, in particular glucose and dsodium are normal. But rest of chemistry is good as well. Departure - Departure Disposition: 01 Home, Self Care Clinical Impression: Positional vertigo Condition: Stable Record reviewed to determine appropriate education?: Yes Instructions: ED Vertigo Unspecified Follow-Up: Connie Payan ARNP [Primary Care Provider] - [facility] [place] [Provider Group] Prescriptions: Meclizine [Antivert] 25 mg PO Q6H PRN #30 tablet PRN Reason: Vertigo dexAMETHasone [Decadron] 4 mg PO DAILY #5 tablet diazePAM [Valium] 5 mg PO TID PRN #12 tablet PRN Reason: Vertigo Comments: Given your being in the ears for at least 1 year along with the vertigo, inclined to think this is more inflammation of the middle and inner ear or possibly some inflammation of the nerve going to both (Mnire's disease), as opposed to a small calcification in the inner ear irritating the nerves (benign positional vertigo). With that in mind I would not suggest doing any of the rotational head exercises that you may find on the Internet or such (Jumana maneuvers) as a do not believe these will help you. That is meant for just repositioning small calcifications. In this case go added with medications of the Decadron anti-inflammatory along with meclizine every 6-8 hours for the next several days or so. Extra doses if needed for the vertigo. At diazepam every 6-8 hours if needed for worse vertigo as it did seem to help with your symptoms here. Follow-up with your primary care or ear nose and throat if not improved well over the next several days and resolved by 4 to 5 days. It could be beneficial to follow-up with ear nose and throat for an evaluation anyway even if this is resolved to make sure there is no underlying process they identify. We did do a CT scan and there is no obvious intracranial abnormality. Given your stimulator, that would be the best imaging available as you cannot have an MRI. Your symptoms do sound more like inner ear vertigo and I feel the imaging we did his adequate enough at this point. Forms: PCP List Discharge Date/Time: 09/21/23 15:25
[2023-09-21] MEDS: SODIUM CHLORIDE 0.9% 1,000 ML IV STA (11:10)
[2023-09-21 11:11] LABS: BASOPHILS % (AUTO) 0.5 %; EOSINOPHILS # (AUTO) 0.1 10^3/uL (0.0-0.7); EOSINOPHILS % (AUTO) 0.8 %; HCT - HEMATOCRIT 45.7 % (42.0-52.0); HGB - HEMOGLOBIN 14.9 g/dL (14.0-18.0); LYMPHOCYTES # (AUTO) 1.2 10^3/uL (1.5-3.5); LYMPHOCYTES % (AUTO) 15.7 %; MEAN CORPUSCULAR HEMOGLOBIN 33.3 pg (27.0-31.0); MEAN CORPUSCULAR HGB CONC 32.6 g/dL (32.0-36.0); MEAN PLATELET VOLUME 10.2 fL (7.4-11.4); MONOCYTES # (AUTO) 0.4 10^3/uL (0.0-1.0); MONOCYTES % (AUTO) 5.1 %; NEUTROPHILS % (AUTO) 77.6 %; PLT - PLATELET COUNT 169 10^3/uL (130-450); RED BLOOD COUNT 4.48 10^6/uL (4.70-6.10); RED CELL DISTRIBUTION WIDTH 13.3 % (12.0-15.0); WHITE BLOOD COUNT 7.7 x10^3/uL (4.8-10.8)
[2023-09-21 11:29] LABS: ALBUMIN 3.8 g/dL (3.2-5.5); ALBUMIN/GLOBULIN RATIO 1.5 (1.0-2.2); BILIRUBIN,TOTAL 0.7 mg/dL (0.2-1.0); CREATININE 0.9 mg/dL (0.6-1.3); MAGNESIUM 1.7 mg/dL (1.7-2.3); POTASSIUM 3.9 mmol/L (3.5-4.5); TOTAL PROTEIN 6.4 g/dL (6.4-8.9)
--- NOTE | 2023-09-21 12:33 | CT Report ---
PROCEDURE: Head WO INDICATIONS: positional vertigo for 2 days TECHNIQUE: Noncontrast 4.5 mm thick angled axial sections acquired from the foramen magnum to the vertex. For r adiation dose reduction, the following was used: automated exposure control, adjustment of mA and/or kV according to patient size. COMPARISON: None. FINDINGS: Image quality: There is artifact associated with the metallic hardware. CSF spaces: Basal cisterns are patent. No extra-axial fluid collections. Ventricles are normal in size and shape. Brain: A left-sided deep brain stem and there can be seen. No midline shift. No intracranial masses or hemorrhage. Coffman-white matter interface is normal. Age-appropriate brain parenchymal volume los s and chronic small vessel ischemic change can be seen. Skull and face: Calvarium and visualized facial bones are intact, without suspicious lesions. Sinuses: Visualized sinuses and mastoids are clear. IMPRESSION: No imaging explanation is found for the patient's presenting symptoms. To the limits of this noncontrast study, no findings of masses or mass effect can be seen. Left-sided deep brain stimulator present. Reviewed by: Anoop Nieto MD on 09/21/2023 11:32 AM TAMIR Approved by: Anoop Nieto MD on 09/21/2023 11:32 AM TAMIR Station ID: [id number]
[2023-09-21] MEDS: MECLIZINE 12.5 MG TABLET PO STA ×2 (13:05→13:16)
[2023-09-21] MEDS: KETOROLAC 15 MG/ML VIAL IVP STA ×2 (13:06→13:16)
[2023-09-21] MEDS: DEXAMETHASONE 10 MG/ML VIAL IVP STA ×2 (13:06→13:15)
[2023-09-21] MEDS: diazePAM INJ 5 MG/ML SYRINGE IVP STA ×2 (13:07→13:15)
[2023-09-21 15:50] VITALS: BP 132/88; O2SAT 99
== END 2023-09-21 15:25 | disposition home or self-care (01) ==
LOC: ED 10:19
DX: H81.10 Benign paroxysmal vertigo, unspecified ear (principal); E78.00 Pure hypercholesterolemia, unspecified; R25.1 Tremor, unspecified; Z96.82 Presence of neurostimulator; Z79.899 Other long term (current) drug therapy
CPT/HCPCS: 36415; 70450; 80053; 83735; 85025; 93005; 96374; 96375; 99283; 99284; A9270

== ENCOUNTER 2023-11-16 09:37 | Outpatient (CLI) | payer MEDICARE, OTHER ==
--- NOTE | 2023-11-16 17:58 | CT Report ---
PROCEDURE: Chest WO INDICATIONS: PULMONARY NODULE TECHNIQUE: A CT scan of the chest was performed. Intravenous contrast media was not administered. Images were re corded and evaluated at appropriate window settings. Reformats: axial MIP of the chest, coronal and s agittal. For radiation dose reduction, the following was used: automated exposure control, adjustment of mA and/or kV according to patient size. COMPARISON: 03/23/2023. FINDINGS: Image quality: Diagnostic. Chest wall and lower neck: No thyroid nodule which requires sonographic follow up. No axillary or sup raclavicular adenopathy by size. Lungs and pleura: No consolidation. No pleural effusions. No pneumothorax. No suspicious pulmonary n odules which require follow up. Chronic probable occlusion of the posterior basal segment right lower lobe pulmonary bronchus with minimal associated atelectasis.. Mediastinum: Heart size is normal. No pericardial effusion. Pacemaker. No large vessel abnormality. N o mediastinal adenopathy by size criteria. Bones: No aggressive osseous abnormality. Upper Abdomen: Calcified gallstones. IMPRESSION: 1. No suspicious pulmonary nodules identified. 2. Likely chronic unchanged occlusion of the posterior basal segmental bronchus of the right lower lo be with mild associated atelectasis. 3. No acute pulmonary process identified. 4. Cholelithiasis. Reviewed by: Luis Romero MD on 11/16/2023 5:56 PM PDT Approved by: Luis Romero MD on 11/16/2023 5:56 PM PDT Station ID: [id number]
== END 2023-11-16 09:38 | disposition home or self-care (01) ==
LOC: DI 09:37
PROVIDERS: ATTEND Internal Medicine
DX: R91.8 Other nonspecific abnormal finding of lung field (principal); J98.11 Atelectasis; K80.20 Calculus of gallbladder without cholecystitis without obstruction

== ENCOUNTER 2024-01-11 10:06 | Outpatient (CLI) | payer MEDICARE, OTHER ==
[2024-01-11 10:16] LABS: BASOPHILS # (AUTO) 0.1 10^3/uL (0.0-0.1); BASOPHILS % (AUTO) 1.4 %; EOSINOPHILS # (AUTO) 0.2 10^3/uL (0.0-0.7); EOSINOPHILS % (AUTO) 3.8 %; HCT - HEMATOCRIT 47.9 % (42.0-52.0); HGB - HEMOGLOBIN 15.9 g/dL (14.0-18.0); LYMPHOCYTES # (AUTO) 2.1 10^3/uL (1.5-3.5); LYMPHOCYTES % (AUTO) 35.9 %; MEAN CORPUSCULAR HGB CONC 33.2 g/dL (32.0-36.0); MEAN CORPUSCULAR VOLUME 102.4 fL (80.0-94.0); MEAN PLATELET VOLUME 9.7 fL (7.4-11.4); MONOCYTES # (AUTO) 0.5 10^3/uL (0.0-1.0); MONOCYTES % (AUTO) 8.4 %; NEUTROPHILS % (AUTO) 50.3 %; PLT - PLATELET COUNT 180 10^3/uL (130-450); RED BLOOD COUNT 4.68 10^6/uL (4.70-6.10); RED CELL DISTRIBUTION WIDTH 13.3 % (12.0-15.0); WHITE BLOOD COUNT 5.9 x10^3/uL (4.8-10.8)
[2024-01-11 10:30] LABS: ALBUMIN 3.9 g/dL (3.2-5.5); ALBUMIN/GLOBULIN RATIO 1.4 (1.0-2.2); ALKALINE PHOSPHATASE 57 IU/L (42-121); ALT ALANINE AMINOTRANSFERASE 18 IU/L (10-60); AST ASPARTATE AMINOTRANSFERASE 16 IU/L (10-42); BILIRUBIN,TOTAL 0.7 mg/dL (0.2-1.0); BUN - BLOOD UREA NITROGEN 19 mg/dL (6-20); CALCIUM 8.9 mg/dL (8.5-10.3); CARBON DIOXIDE - CO2 29 mmol/L (21-32); CHLORIDE 106 mmol/L (101-111); CHOL/HDL RATIO 3.4 (<5.0); CHOLESTEROL 117 mg/dL; CREATININE 0.9 mg/dL (0.6-1.3); GFR - MDRD 83 (>89); GLUCOSE 118 mg/dL (74-104); HDL CHOLESTEROL 34 mg/dL; LDL CHOLESTEROL,CALCULATED 34 mg/dL; POTASSIUM 4.1 mmol/L (3.5-4.5); SODIUM 138 mmol/L (135-145); TOTAL PROTEIN 6.6 g/dL (6.4-8.9); TRIGLYCERIDES 245 mg/dL; VLDL CHOLESTEROL 49 mg/dL
[2024-01-11 10:46] LABS: THYROID STIMULATING HORMONE 3.57 uIU/mL (0.34-5.60)
[2024-01-11 11:57] LABS: ESTIMATED AVERAGE GLUCOSE 114 mg/dL (70-100); HEMOGLOBIN A1c% 5.6 % (4.27-6.07)
== END 2024-01-11 10:07 | disposition home or self-care (01) ==
LOC: LAB 10:06
PROVIDERS: ATTEND Nurse Practitioner
DX: R73.03 Prediabetes (principal); Z79.899 Other long term (current) drug therapy; Z13.220 Encounter for screening for lipoid disorders; N40.1 Benign prostatic hyperplasia with lower urinary tract symptoms
CPT/HCPCS: 36415; 80053; 80061; 83036; 83721; 84153; 84443; 85025

== ENCOUNTER 2024-02-13 08:00 | Outpatient (CLI) | payer MEDICARE, OTHER ==
--- NOTE | 2024-02-13 14:30 | XRAY Report ---
PROCEDURE: Lumbar Spine 4V INDICATIONS: LUMBAR RADICULOPATHY TECHNIQUE: 5 views of the lumbar spine were acquired. COMPARISON: None. FINDINGS: Surgical change: None. Bones: 5 [id number] vertebrae are present. There is normal bony alignment. No vertebral body co mpression fractures. No suspicious bony lesions. Mild disc height loss at all levels. Mild, multilev el facet arthrosis. Soft tissues: Overlying bowel gas pattern is normal. No suspicious soft tissue calcifications. IMPRESSION: No displaced fracture or traumatic subluxation. 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 Reviewed by: Randall Corrales MD on 02/13/2024 2:29 PM PDT Approved by: Randall Corrales MD on 02/13/2024 2:29 PM PDT Station ID: [id number]
== END 2024-02-13 23:59 | disposition home or self-care (01) ==
LOC: DI.S 08:00
PROVIDERS: ATTEND Physician Assistant Medical
DX: M47.816 Spondylosis without myelopathy or radiculopathy, lumbar region (principal); M51.36 Other intervertebral disc degeneration, lumbar region